=== PATIENT | male | born 1985 | race Caucasian/White ===

== ENCOUNTER 2020-10-11 08:44 | Emergency (ER) | payer BC ==
--- NOTE | 2020-10-11 09:10 | EDM.PDOC ---
ED HPI GENERAL MEDICAL PROBLEM - General Stated Complaint: SOB, SEVERE COUGH Time Seen by Provider: 10/11/20 09:04 Source of Information: Reports: Patient, Significant Other - History of Present Illness INITIAL COMMENTS - FREE TEXT/NARRATIVE: 34-year-old male who reports beginning about 2 weeks ago he developed a cough and some nasal congestion. Apparently a friend had bronchitis and he seemed to develop his symptoms and about the same time that this friend developed there. They tested negative for Covid at that time. His daughter since developed cough and nasal congestion and her symptoms have resolved but his cough which has been mostly nonproductive and hacking has hung on and then beginning yesterday he started to have worsened breathing with increasing cough and did not sleep much at all last night and reports that his cough was much worse this morning and he was feeling very short of breath. There was pain in both his head and his back that was throbbing and aching and he rated it as a 7/10. He had no chest pain. He did have some nausea with dry heaving. He reports that he has been eating and drinking normally or him however. He does feel weak all over. No fevers or chills. He presents to the emergency department with his significant other via private vehicle. He was extremely short of breath and his O2 saturations were in the low 80s. His O2 saturations have come up to 92-93% on a simple facemask at 12 L/m. He reports that he has had episodes like this over the past 2 years that people have just called bronchitis. He has no history of asthma. He is a smoker. He has used his nebulizer and his inhalers at home without relief of his symptoms. There are no other associated signs or symptoms. There are no other modifying factors. 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 Denies: Sputum, Hemoptysis Cardiovascular: Reports: No Symptoms Endocrine: Reports: No Symptoms GI/Abdominal: Reports: Nausea, Vomiting (Dry heaving.) : Reports: No Symptoms Musculoskeletal: Reports: Back Pain Skin: Reports: No Symptoms Neurological: Reports: Headache Psychiatric: Reports: No Symptoms Hematologic/Lymphatic: Reports: No Symptoms Immunologic: Reports: No Symptoms ED EXAM, GENERAL - Physical Exam Exam: See Below Exam Limited By: No Limitations General Appearance: Alert, WD/WN, Moderate Distress (He is in respiratory distress.) Eye Exam: Bilateral Eye: EOMI, Normal Inspection, PERRL Ears: Normal External Exam, Hearing Grossly Normal Ear Exam: Bilateral Ear: Auricle Normal Nose: Normal Inspection, No Blood, Nasal Drainage Throat/Mouth: Normal Voice, No Airway Compromise, Other Head: Atraumatic, Normocephalic (Somewhat dry mucous membranes) Neck: Normal Inspection, Supple, Non-Tender, Full Range of Motion Respiratory/Chest: Respiratory Distress, Decreased Breath Sounds (Poor air movement), Rhonchi, Wheezing, Accessory Muscle Use, Prolonged Expiration Cardiovascular: Normal Peripheral Pulses, No Murmur, Tachycardia Peripheral Pulses: 2+: Radial (L), Radial (R) GI/Abdominal: Normal Bowel Sounds, Soft, Non-Tender, No Mass Back Exam: Normal Inspection, Full Range of Motion Extremities: Normal Inspection, Normal Range of Motion, Non-Tender, No Pedal Edema, Normal Capillary Refill Neurological: Alert, Oriented, CN II-XII Intact, Normal Cognition, No Motor/Sensory Deficits Skin Exam: Warm, Dry, Intact, Normal Color, No Rash #1 Interpretation EKG Date: 10/11/20 Time: 09:16 Rhythm: Other (Sinus tachycardia) Rate (Beats/Min): 107 Runge: Normal P-Wave: Present QRS: Normal ST-T: Normal QT: Normal Comparison: NA - No Prior EKG Course - Vital Signs Last Recorded V/S: Last Vital Signs Temp 36.6 C 10/11/20 10:04 Pulse 110 H 10/11/20 10:18 Resp 24 H 10/11/20 10:18 BP 125/77 10/11/20 10:18 Pulse Ox 93 L 10/11/20 10:18 - Orders/Labs/Meds Orders: Active Orders 24 hr Category Date Time Status EKG Documentation Completion [RC] ASDIRECTED Care 10/11/20 09:23 Active RT Aerosol Therapy [RC] ASDIRECTED Care 10/11/20 09:48 Active RT Aerosol Therapy [RC] ASDIRECTED Care 10/11/20 12:17 Active Chest 1V Frontal [CR] Stat Exams 10/11/20 09:20 Taken CULTURE BLOOD [BC] Urgent Lab 10/11/20 10:33 Received CULTURE BLOOD [BC] Urgent Lab 10/11/20 10:50 Received Sodium Chloride 0.9% [Normal Saline] 1,000 ml Med 10/11/20 09:30 Active IV ASDIRECTED Sodium Chloride 0.9% [Saline Flush] Med 10/11/20 09:20 Active 10 ml FLUSH ASDIRECTED PRN Blood Culture x2 Reflex Set [OM.PC] Urgent Oth 10/11/20 10:33 Ordered Peripheral IV Insertion Adult [OM.PC] Routine Oth 10/11/20 09:20 Ordered EKG 12 Lead [EK] Routine Ther 10/11/20 09:22 Ordered Medication Orders Sodium Chloride (Normal Saline) 1,000 mls @ 100 mls/hr IV ASDIRECTED DARIAN Last Admin: 10/11/20 09:28 Dose: 100 mls/hr Documented by: LAMIN Sodium Chloride (Sodium Chloride 0.9% 10 Ml Syringe) 10 ml FLUSH ASDIRECTED PRN PRN Reason: Keep Vein Open Last Admin: 10/11/20 09:28 Dose: 10 ml Documented by: LAMIN Labs: Laboratory Tests 10/11/20 10/11/20 10/11/20 Range/Units 09:00 09:50 09:50 WBC 10.6 H (3.2-10.1) x10-3/uL RBC 4.74 (3.90-5.90) x10(6)uL Hgb 15.2 (12.9-17.7) g/dL Hct 44.9 (38.3-50.1) % MCV 94.8 (80.8-98.7) fL MCH 32.1 (27.0-33.3) pg MCHC 33.8 (28.7-35.3) g/dL RDW 12.9 (12.4-15.0) % Plt Count 239 (117-477) x10(3)uL MPV 10.0 (6.7-11.0) fL Neut % (Auto) 66.9 (40.3-71.8) % Lymph % (Auto) 13.9 L (15.8-45.3) % Josephine % (Auto) 8.2 (5.5-15.2) % Eos % (Auto) 10.3 H (0.1-6.8) % Baso % (Auto) 0.7 (0.3-3.8) % Neut # (Auto) 7.1 H (1.7-6.9) x10-3/uL Lymph # (Auto) 1.5 (0.5-4.5) x10-3/uL Josephine # (Auto) 0.9 (0.0-1.2) x10-3/uL Eos # (Auto) 1.1 H (0.0-0.6) x10-3/uL Baso # (Auto) 0.1 (0.0-0.3) x10-3/uL D-Dimer, Quantitative (0.0-0.59) mg/LFEU POC VBG pH (7.32-7.43) pH Units POC VBG pCO2 (41-51) mmHg POC VBG HCO3 (21-29) mmol/L VBG Base Excess (-2-3) mmol/L O2 Delivery Device Sodium 143 (135-145) mmol/L Potassium 4.3 (3.5-5.3) mmol/L Chloride 103 (100-110) mmol/L Carbon Dioxide 27 (21-32) mmol/L BUN 15 (7-18) mg/dL Creatinine 1.1 (0.70-1.30) mg/dL Est Cr Clr Drug Dosing TNP Estimated GFR (MDRD) > 60 (>60) BUN/Creatinine Ratio 13.6 (9-20) Glucose 108 (80-116) mg/dL Lactic Acid (0.4-2.0) mmol/L Calcium 8.4 L (8.6-10.2) mg/dL Magnesium 2.0 (1.8-2.5) mg/dL Total Bilirubin 0.3 (0.1-1.3) mg/dL AST 17 (5-25) IU/L ALT 50 H (12-36) U/L Alkaline Phosphatase 56 (56-112) IU/L Troponin I (4.0-60.3) pg/mL NT-Pro-B Natriuret Pep (<=125) pg/mL Total Protein 6.9 (6.0-8.0) g/dL Albumin 3.8 (3.5-5.2) g/dL Globulin 3.1 g/dL Albumin/Globulin Ratio 1.2 SARS-CoV-2 RNA (RADHA) Negative (NEGATIVE) 10/11/20 10/11/20 10/11/20 Range/Units 09:50 09:50 09:50 WBC (3.2-10.1) x10-3/uL RBC (3.90-5.90) x10(6)uL Hgb (12.9-17.7) g/dL Hct (38.3-50.1) % MCV (80.8-98.7) fL MCH (27.0-33.3) pg MCHC (28.7-35.3) g/dL RDW (12.4-15.0) % Plt Count (117-477) x10(3)uL MPV (6.7-11.0) fL Neut % (Auto) (40.3-71.8) % Lymph % (Auto) (15.8-45.3) % Josephine % (Auto) (5.5-15.2) % Eos % (Auto) (0.1-6.8) % Baso % (Auto) (0.3-3.8) % Neut # (Auto) (1.7-6.9) x10-3/uL Lymph # (Auto) (0.5-4.5) x10-3/uL Josephine # (Auto) (0.0-1.2) x10-3/uL Eos # (Auto) (0.0-0.6) x10-3/uL Baso # (Auto) (0.0-0.3) x10-3/uL D-Dimer, Quantitative (0.0-0.59) mg/LFEU POC VBG pH 7.41 (7.32-7.43) pH Units POC VBG pCO2 38 L (41-51) mmHg POC VBG HCO3 24 (21-29) mmol/L VBG Base Excess -1 (-2-3) mmol/L O2 Delivery Device Simple mask Sodium (135-145) mmol/L Potassium (3.5-5.3) mmol/L Chloride (100-110) mmol/L Carbon Dioxide (21-32) mmol/L BUN (7-18) mg/dL Creatinine (0.70-1.30) mg/dL Est Cr Clr Drug Dosing Estimated GFR (MDRD) (>60) BUN/Creatinine Ratio (9-20) Glucose (80-116) mg/dL Lactic Acid 1.7 (0.4-2.0) mmol/L Calcium (8.6-10.2) mg/dL Magnesium (1.8-2.5) mg/dL Total Bilirubin (0.1-1.3) mg/dL AST (5-25) IU/L ALT (12-36) U/L Alkaline Phosphatase (56-112) IU/L Troponin I 6.7 (4.0-60.3) pg/mL NT-Pro-B Natriuret Pep 20 (<=125) pg/mL Total Protein (6.0-8.0) g/dL Albumin (3.5-5.2) g/dL Globulin g/dL Albumin/Globulin Ratio SARS-CoV-2 RNA (RADHA) (NEGATIVE) 10/11/20 Range/Units 09:50 WBC (3.2-10.1) x10-3/uL RBC (3.90-5.90) x10(6)uL Hgb (12.9-17.7) g/dL Hct (38.3-50.1) % MCV (80.8-98.7) fL MCH (27.0-33.3) pg MCHC (28.7-35.3) g/dL RDW (12.4-15.0) % Plt Count (117-477) x10(3)uL MPV (6.7-11.0) fL Neut % (Auto) (40.3-71.8) % Lymph % (Auto) (15.8-45.3) % Josephine % (Auto) (5.5-15.2) % Eos % (Auto) (0.1-6.8) % Baso % (Auto) (0.3-3.8) % Neut # (Auto) (1.7-6.9) x10-3/uL Lymph # (Auto) (0.5-4.5) x10-3/uL Josephine # (Auto) (0.0-1.2) x10-3/uL Eos # (Auto) (0.0-0.6) x10-3/uL Baso # (Auto) (0.0-0.3) x10-3/uL D-Dimer, Quantitative < 0.19 (0.0-0.59) mg/LFEU POC VBG pH (7.32-7.43) pH Units POC VBG pCO2 (41-51) mmHg POC VBG HCO3 (21-29) mmol/L VBG Base Excess (-2-3) mmol/L O2 Delivery Device Sodium (135-145) mmol/L Potassium (3.5-5.3) mmol/L Chloride (100-110) mmol/L Carbon Dioxide (21-32) mmol/L BUN (7-18) mg/dL Creatinine (0.70-1.30) mg/dL Est Cr Clr Drug Dosing Estimated GFR (MDRD) (>60) BUN/Creatinine Ratio (9-20) Glucose (80-116) mg/dL Lactic Acid (0.4-2.0) mmol/L Calcium (8.6-10.2) mg/dL Magnesium (1.8-2.5) mg/dL Total Bilirubin (0.1-1.3) mg/dL AST (5-25) IU/L ALT (12-36) U/L Alkaline Phosphatase (56-112) IU/L Troponin I (4.0-60.3) pg/mL NT-Pro-B Natriuret Pep (<=125) pg/mL Total Protein (6.0-8.0) g/dL Albumin (3.5-5.2) g/dL Globulin g/dL Albumin/Globulin Ratio SARS-CoV-2 RNA (RADHA) (NEGATIVE) Meds: Medications Generic Name Dose Route Start Last Admin Trade Name Freq PRN Reason Stop Dose Admin Sodium Chloride 1,000 mls @ 100 mls/hr 10/11/20 09:30 10/11/20 09:28 Normal Saline IV 100 mls/hr ASDIRECTED DARIAN Administration Sodium Chloride 10 ml 10/11/20 09:20 10/11/20 09:28 Sodium Chloride 0.9% 10 Ml Syringe FLUSH 10 ml ASDIRECTED PRN Administration Keep Vein Open Discontinued Medications Generic Name Dose Route Start Last Admin Trade Name Efraq PRN Reason Stop Dose Admin Acetaminophen 1,000 mg 10/11/20 09:24 10/11/20 09:28 Acetaminophen 500 Mg Tab PO 10/11/20 09:25 1,000 mg ONETIME ONE Administration Albuterol 2.5 mg 10/11/20 09:47 10/11/20 09:52 Albuterol 0.083% 2.5 Mg/3 Ml Neb Soln NEB 10/11/20 09:48 2.5 mg ONETIME ONE Administration Albuterol 2.5 mg 10/11/20 12:16 10/11/20 12:21 Albuterol 0.083% 2.5 Mg/3 Ml Neb Soln NEB 10/11/20 12:17 2.5 mg ONETIME ONE Administration Albuterol/Ipratropium 3 ml 10/11/20 09:47 10/11/20 09:52 Albuterol/Ipratropium 3.0-0.5 Mg/3 Ml Neb Soln NEB 10/11/20 09:48 3 ml ONETIME ONE Administration Ceftriaxone Sodium 2 gm 10/11/20 10:34 10/11/20 11:00 Ceftriaxone 2 Gm Vial IVPUSH 10/11/20 10:35 2 gm ONETIME ONE Administration Dexamethasone 10 mg 10/11/20 09:23 10/11/20 09:28 Dexamethasone 4 Mg/Ml Sdv IVPUSH 10/11/20 09:24 10 mg ONETIME ONE Administration Azithromycin 500 mg/ Sodium 250 mls @ 250 mls/hr 10/11/20 10:34 10/11/20 11:02 Chloride IV 10/11/20 11:33 250 mls/hr ONETIME ONE Administration Lorazepam 0.5 mg 10/11/20 12:15 10/11/20 12:20 Lorazepam 2 Mg/Ml Sdv IVPUSH 10/11/20 12:16 0.5 mg ONETIME ONE Administration - Radiology Interpretation Free Text/Narrative:: Portable chest x-ray showed no acute disease. - Re-Assessments/Exams Free Text/Narrative Re-Assessment/Exam: 10/11/20 10:30: Patient has received a nebulizer treatment. His rapid Covid was negative. He is still requiring 10 L/m via simple face mask and he still has a cough but his air movement is much improved and his work of breathing has decreased. He remains awake and alert. His pulse rate is down into the 110 range. The patient will need admission for submental oxygen, IV steroids, frequent nebulizer treatments and IV antibiotics. This is due to his respiratory failure. I did order a d-dimer to be performed and I am awaiting the results of this but I feel that pulmonary embolus is unlikely in that the patient's problem is due to his reactive airways and an infectious/allergic etiology. 10/11/20 10:45: I discussed the patient's case with Dr. Freire and he would feel the patient would be appropriate for admission to our facility if beds and staff are available. We are awaiting the results of the d-dimer before making final decision. 10/11/20 10:50: I discussed admission to our facility with ROSANNE Burger nurse supervisory training specialist and she is unsure if we have staff available to care for the patient here. She will be checking on this. 10/11/20 11:15: The patient's d-dimer is normal. I have been informed by Jennyfer, nurse supervisory training specialist, that we do not have staff available here to admit the patient and therefore the patient will need to be transferred for admission. 10/11/20 11:20: I discussed this with the patient and with his significant other and they would want me to discuss his case with the doctors at [facility] in [place]. We haven't been able to wean the patient down to 5 L/m via nasal cannula with O2 saturations of 92-93%. His work of breathing is much less than previous and he remains awake, alert and hemodynamically and neurologically stable. 10/11/20 11:30: I discussed the patient's case with Dr. Simon, hospitalist at [facility] in [place], and he has agreed to accept the patient in transfer. She will need to be transferred via ambulance to [facility] for direct admission. 10/11/20 11:40: Patient's O2 saturation have decreased again to the 88-89% range on the 5 L/m via nasal cannula. We will again place the patient back on a simple mask at 10 L/m. The patient has received Decadron 10 mg IV, DuoNeb and albuterol neb combination, IV normal saline at a maintenance rate, Rocephin 2 g IV and Zithromax 500 mg IV (is being infused at present). 10/11/20 12:40: Patient with acute onset of feeling quite dyspneic with increased respiratory rate. Initially his O2 saturations were 95% on 10 L/m via simple mask but they dipped to the 90% range and his pulse rate went up to the 140 range. A nebulizer treatment was ordered as well as Ativan 0.5 mg IV. On exam he was quite wheezy and tight with poor air movement. With the nebulizer treatment given, is air movement was improved but still somewhat wheezy. His O2 saturation her back down to 93-94% on 2 L/m via nasal cannula (he had transiently been placed on 100% nonrebreather by the nursing staff) and his pulse rate is back down into the 120 range. His respiratory rate which had gotten up to the 30s is still in the low 20s but he reports he is feeling improved. [facility] crews with paramedics are here to transport the patient. I will call and discuss the patient's case with the hospitalist at [facility] in [place]. 10/11/20 12:50: I discussed the patient's case with Dr. Simon, hospitalist at [facility], and informed him of the patient's "episode". We will Alissa patient on a continuous albuterol neb and the patient is improved and deemed appropriate for transport at this point. The patient will still be going to the stepdown unit for now. If the patient has any worsening of his symptoms, he will be diverted to the ER at [facility] in [place]. I discussed all this with the patient and with his significant other and they are still in agreement with plan for transfer. Departure - Departure Time of Disposition: 12:57 Disposition: DC/Tfer to Acute Hospital 02 Condition: Fair (Guarded.) Clinical Impression: Acute respiratory failure with hypoxia, Bronchitis Reactive airway disease Qualifiers: Asthma severity: severe Asthma persistence: persistent Asthma complication type: with acute exacerbation Qualified Code(s): J45.51 - Severe persistent asthma with (acute) exacerbation - Discharge Information Instructions: and Inducing , Exclusive , Mastitis, Gmve-[id number], Breast Pumping Tips, and Low Milk Supply, and Mastitis, and Self-Care, and Returning to Work Referrals: Chacorta Degroot MD [Primary Care Provider] - Forms: ED Department Discharge Sepsis Event Note (ED) - Focused Exam Vital Signs: Vital Signs Temp Pulse Resp BP Pulse Ox 10/11/20 10:18 110 H 24 H 125/77 93 L 10/11/20 10:04 36.6 C 127 H 16 149/89 H 80 L 10/11/20 09:35 116 H - My Orders Last 24 Hours: My Active Orders 10/11/20 09:20 Chest 1V Frontal [CR] Stat Sodium Chloride 0.9% [Saline Flush] 10 ml FLUSH ASDIRECTED PRN Peripheral IV Insertion Adult [OM.PC] Routine 10/11/20 09:22 EKG 12 Lead [EK] Routine 10/11/20 09:23 EKG Documentation Completion [RC] ASDIRECTED 10/11/20 09:30 Sodium Chloride 0.9% [Normal Saline] 1,000 ml IV ASDIRECTED 10/11/20 09:48 RT Aerosol Therapy [RC] ASDIRECTED 10/11/20 10:33 CULTURE BLOOD [BC] Urgent Blood Culture x2 Reflex Set [OM.PC] Urgent 10/11/20 10:50 CULTURE BLOOD [BC] Urgent 10/11/20 12:17 RT Aerosol Therapy [RC] ASDIRECTED - Assessment/Plan Last 24 Hours: My Active Orders 10/11/20 09:20 Chest 1V Frontal [CR] Stat Sodium Chloride 0.9% [Saline Flush] 10 ml FLUSH ASDIRECTED PRN Peripheral IV Insertion Adult [OM.PC] Routine 10/11/20 09:22 EKG 12 Lead [EK] Routine 10/11/20 09:23 EKG Documentation Completion [RC] ASDIRECTED 10/11/20 09:30 Sodium Chloride 0.9% [Normal Saline] 1,000 ml IV ASDIRECTED 10/11/20 09:48 RT Aerosol Therapy [RC] ASDIRECTED 10/11/20 10:33 CULTURE BLOOD [BC] Urgent Blood Culture x2 Reflex Set [OM.PC] Urgent 10/11/20 10:50 CULTURE BLOOD [BC] Urgent 10/11/20 12:17 RT Aerosol Therapy [RC] ASDIRECTED
[2020-10-11] MEDS ORDERED: Sodium Chloride 0.9% 10 ML Syringe FLUSH PRN (09:20)
[2020-10-11] MEDS ORDERED: Dexamethasone 4 MG/ML SDV IVPUSH ONE (09:23)
[2020-10-11] MEDS ORDERED: Acetaminophen 500 MG Tab PO ONE (09:24)
[2020-10-11] MEDS ORDERED: Sodium Chloride 0.9% 1,000 ML IV SCH (09:30)
[2020-10-11] MEDS ORDERED: Albuterol/Ipratropium 3.0-0.5 MG/3 ML Neb Soln NEB ONE (09:47)
[2020-10-11] MEDS ORDERED: Albuterol 0.083% 2.5 MG/3 ML Neb Soln NEB ONE ×2 (09:47→12:16)
[2020-10-11 09:59] LABS: PCO2 VENOUS,POC 38 mmHg (41-51); PH VENOUS,POC 7.41 pH Units (7.32-7.43)
[2020-10-11 10:00] LABS: BASE EXCESS VENOUS,POC -1 mmol/L (-2-3); HCO3 VENOUS,POC 24 mmol/L (21-29)
[2020-10-11 10:25] VITALS: BP 125/77; PULSE 110
[2020-10-11] MEDS ORDERED: cefTRIAXone 2 GM Vial IVPUSH ONE (10:34)
[2020-10-11] MEDS ORDERED: Azithromycin 500 MG in Sodium Chloride 0.9% 250 ML IV ONE (10:34)
[2020-10-11] MEDS ORDERED: LORazepam 2 MG/ML SDV IVPUSH ONE (12:15)
--- NOTE | 2020-10-12 11:44 | CR ---
INDICATION: Shortness of breath. CHEST ONE VIEW: AP portable upright view of the chest 10/11/20 was compared with 09/08/19 and revealed relative poor inspiration emphasizing markings. The heart, mediastinum and bony thorax were essentially unremarkable. Overlying EKG leads are noted. No gross consolidating pneumonia or effusion was seen. When clinically possible, full inspiration PA and lateral views of the chest may be helpful in excluding minimal patchy areas of active pneumonia made difficult to exclude by heavy markings present, especially at the lung bases due to the poor inspiration. MTDD
== END 2020-10-11 12:56 ==
LOC: FB.ED 08:44
DX: J45.51 Severe persistent asthma with (acute) exacerbation (principal); J96.01 Acute respiratory failure with hypoxia; R00.0 Tachycardia, unspecified; Z72.0 Tobacco use; Z91.013 Allergy to seafood; Z20.822 Contact with and (suspected) exposure to COVID-19
CPT/HCPCS: 36415; 71045; 80053; 83605; 83735; 83880; 84484; 85025; 85379; 87040; 87635; 93005; 93010; 94640; 96365; 96375; 99285; A9270; J0456; J0696; J1100; J2060; J7030; J7050; J7620-GY; U0002